=== PATIENT | female | born 1990 | race Hispanic/Latino ===

== ENCOUNTER → 2019-11-28 | Outpatient (REF) | payer OTHER ==
[~2019-11-28] MED LIST: AUGM875T28 PO; CIPR500T19; NEUR100C PO; TRAM50TA2
== END ==
LOC: M SFHCWAGY 14:01
PROVIDERS: ATTEND Nurse Practitioner Women's Health
DX: Z12.4 Encounter for screening for malignant neoplasm of cervix (principal)
CPT/HCPCS: G0101; G0123

== ENCOUNTER → 2019-12-24 | Outpatient (REF) | payer OTHER | LOC: M SFHCWAGY 17:21 | PROVIDERS: ATTEND Nurse Practitioner Women's Health | DX: R87.612 Low grade squamous intraepithelial lesion on cytologic smear of cervix (LGSIL) (principal) ==

== ENCOUNTER 2020-01-06 06:16 | Emergency (ER) | payer OTHER ==
[~2020-01-06] VITALS: Ht 162.6 cm; Wt 90.9 kg
[~2020-01-06 06:16] MED LIST changes: -AUGM875T28 PO; -NEUR100C PO
[2020-01-06] MEDS ORDERED: NEUR100C PO (06:25)
[2020-01-06] MEDS ORDERED: ACETAMINOPHEN 325 MG TAB As Ordered ONE (07:23)
[2020-01-06] MEDS ORDERED: ACETAMINOPHEN 325 MG TAB PO ONE (07:30)
--- NOTE | 2020-01-06 07:35 | REP ---
Clinical: Shortness of breath the . Comparison: None . Technique: PA and lateral. Findings: The mediastinum and cardiac silhouette are normal. The lung love are clear and without acute consolidation, effusion, or pneumothorax. The skeletal structures are intact and normal. Impression: 1. No acute cardiopulmonary process. Electronically Signed by Burton Giraldo MD 01/06/2020 07:27 A
[2020-01-06 07:47] LABS: BASO % 0.2 % (0.0-1.0); EOS # 0.2 10^3/uL (0.0-0.5); EOS % 1.3 % (0.0-3.0); HEMATOCRIT 35.6 % (36.0-47.0); HEMOGLOBIN 11.6 g/dl (12.0-15.5); LYMPH # 0.6 10^3/uL (1.5-5.0); LYMPH % 4.2 % (24.0-44.0); MEAN CORPUSCULAR HEMOGLOBIN 28.3 pg (27.0-33.0); MEAN CORPUSCULAR HGB CONC 32.6 g/dl (32.0-36.5); MEAN CORPUSCULAR VOLUME 86.8 fl (80.0-96.0); MONO # 0.7 10^3/uL (0.0-0.8); NEUTROPHILS # 12.6 10^3/uL (1.5-8.5); NEUTROPHILS % 88.8 % (36.0-66.0); PLATELET COUNT, AUTOMATED 215 10^3/uL (150-450); WHITE BLOOD COUNT 14.2 10^3/uL (4.0-10.0)
[2020-01-06 08:15] LABS: BLOOD UREA NITROGEN 6 MG/DL (7-18); CARBON DIOXIDE LEVEL 22 MEQ/L (21-32); CHLORIDE LEVEL 111 MEQ/L (98-107); CREATININE FOR GFR 0.82 MG/DL (0.55-1.30); GLOMERULAR FILTRATION RATE > 60.0 (>60); GLUCOSE, FASTING 105 MG/DL (70-100); POTASSIUM SERUM 3.2 MEQ/L (3.5-5.1); SODIUM LEVEL 142 MEQ/L (136-145)
[2020-01-06 08:22] LABS: CK-MB VALUE MASS < 1.0 NG/ML (<3.6); CPK CREATINE PHOSPHOKINASE 65 U/L (26-192); MB/CK RELATIVE INDEX 1.54 (< OR =4); TROPONIN I < 0.02 NG/ML (< 0.10)
[2020-01-06] MEDS ORDERED: ISOVUE-370 76% 100ML VIAL (Q9967) As Ordered ONE (09:42)
[2020-01-06] MEDS ORDERED: MORPHINE 2 MG/ML 1ML VIAL (J2270) IV ONE (10:00)
--- NOTE | 2020-01-06 10:35 | REP ---
Clinical: Acute chest pain with dyspnea and elevated D-dimer levels. Technique: Axial contrast enhanced images from the thoracic inlet to the upper abdomen using 100 ml Isovue 370 intravenous contrast material with coronal and sagittal re-formations. Findings: Satisfactory enhancement of the pulmonary vasculature is achieved and no filling defects are identified to suggest pulmonary embolus. Thoracic aorta is normal caliber without aneurysm or dissection. Heart and pericardium are normal. Lung love demonstrate very subtle scattered ground-glass opacities along with small focal primarily upper lobe alveolar infiltrates suggesting an early acute pneumonia. No effusion. No pneumothorax. Tracheobronchial tree is patent. Few mildly prominent reactive mediastinal and right hilar lymph nodes measure up to approximately 13 mm. Impression: No evidence for pulmonary embolus. Very subtle early acute pneumonia suspected and correlation is recommended. Electronically Signed by Burton Giraldo MD 01/06/2020 10:27 A
[2020-01-06] MEDS ORDERED: KETOROLAC 30 MG/ML VIAL (J1885) IV ONE (11:15)
[2020-01-06] MEDS ORDERED: AUGM875T28 PO (12:30)
[2020-01-06 12:55] VITALS: BP 105/67
--- NOTE | 2020-01-06 16:12 | ECGEPIP ---
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
== END 2020-01-06 12:58 | disposition home or self-care (01) ==
LOC: M ED 06:16
DX: J18.9 Pneumonia, unspecified organism (principal); Z20.828 Contact with and (suspected) exposure to other viral communicable diseases; R50.9 Fever, unspecified; R05 Cough; R06.00 Dyspnea, unspecified; Z87.891 Personal history of nicotine dependence
CPT/HCPCS: 71046; 71275; 80048; 82550; 82553; 83605; 84484; 85025; 85379; 87040; 87486; 87581; 87633; 87798; 87880; 93005; 96374; 96375; 99284; J1885; J2270; Q9967; U0002

== ENCOUNTER → 2020-10-31 | Outpatient (CLI) | payer OTHER ==
[~2020-10-31] MED LIST changes: +AUGM875T28 PO; +NEUR100C PO
[2020-10-31 17:01] LABS: ALBUMIN 4.5 GM/DL (3.2-5.2); ALT/SGPT 25 U/L (12-78); BILIRUBIN,TOTAL 0.3 MG/DL (0.2-1.0); BLOOD UREA NITROGEN 12 MG/DL (7-18); CALCIUM LEVEL 9.1 MG/DL (8.5-10.1); CARBON DIOXIDE LEVEL 25 MEQ/L (21-32); CHLORIDE LEVEL 107 MEQ/L (98-107); CHOLESTEROL LEVEL 160 MG/DL (<200); CHOLESTEROL RISK RATIO 3.076 (<5); CREATININE FOR GFR 0.86 MG/DL (0.55-1.30); FREE T4 1.03 NG/DL (0.76-1.46); GLOMERULAR FILTRATION RATE > 60.0 (>60); GLUCOSE, FASTING 90 MG/DL (70-100); HDL CHOLESTEROL 52 MG/DL (>40); LDL CHOLESTEROL 95 MG/DL (<100); NON-HDL-C 108 MG/DL; SODIUM LEVEL 141 MEQ/L (136-145); THYROID STIMULATING HORMONE 0.736 uIU/ML (0.358-3.740); TOTAL PROTEIN 7.5 GM/DL (6.4-8.2); TRIGLYCERIDES LEVEL 66 MG/DL (<150)
== END ==
LOC: M WUC 14:22
PROVIDERS: ATTEND Student in an Organized Health Care Education/Training Program
DX: J06.9 Acute upper respiratory infection, unspecified (principal); Z68.35 Body mass index [BMI] 35.0-35.9, adult
CPT/HCPCS: 36415; 80053; 80061; 83036; 84439; 84443; G0463

== ENCOUNTER → 2020-12-08 | Outpatient (REF) | payer OTHER | LOC: M SFHCLERA 15:46 | PROVIDERS: ATTEND Nurse Practitioner Family | DX: J06.9 Acute upper respiratory infection, unspecified (principal) ==

== ENCOUNTER → 2020-12-08 | Outpatient (CLI) | payer OTHER | LOC: M LABSMTC 14:07 | PROVIDERS: ATTEND Family Medicine | DX: Z11.52 Encounter for screening for COVID-19 (principal) | CPT/HCPCS: 87880; C9803; G0463; U0003 ==

== ENCOUNTER → 2020-12-31 | Outpatient (REF) | payer OTHER | LOC: M SFHCWAGY 13:17 | PROVIDERS: ATTEND Nurse Practitioner Women's Health | DX: Z12.4 Encounter for screening for malignant neoplasm of cervix (principal) ==

== ENCOUNTER → 2021-01-01 | Outpatient (CLI) | payer OTHER ==
--- NOTE | 2021-01-01 17:37 | REPVR ---
PROCEDURE INFORMATION: Exam: MR Lumbar Spine Without Contrast. Exam date and time: 01/01/2021 3:54 PM Age: 30 years old Clinical indication: Low back pain; Additional info: Lt low back pain TECHNIQUE: Imaging protocol: Multiplanar magnetic resonance images of the lumbar spine without contrast. COMPARISON: No relevant prior studies available. FINDINGS: Vertebrae: Anatomic alignment. No acute fracture seen. Spinal cord: The conus medullaris ends normally. The disc desiccation at L5-S1 with mild posterior disc height loss and slight endplate osteophytic ridging. Elsewhere, the intervertebral disc heights are preserved. L1-L2: Mild facet arthropathy. No stenoses. L2-L3: Mild facet arthropathy. No stenoses. L3-L4: Mild facet arthropathy. No stenoses. L4-L5: No significant disc disease. No significant spinal canal stenosis. No neural foraminal stenosis. L5-S1: Mild diffuse disc bulge. Approximate 2-3 mm right eccentric central disc protrusion with high-intensity zone approximates but does not definitively abut or displace the S1 nerve roots.. Facet arthropathy is mild. The central spinal canal and foramina remain patent. Soft tissues: Mild, nonspecific edema in the back subcutaneous fat, potentially dependent/positional. IMPRESSION: 1. Mild disc degeneration at L5-S1. 2. A subtle right eccentric central disc protrusion with high-intensity zone at L5-S1 approximates but does not definitively abut the S1 nerve roots. Electronically signed by: Marina Coleman On 01/01/2021 17:36:54 PM
== END ==
LOC: M PLARAD 13:22
PROVIDERS: ATTEND Student in an Organized Health Care Education/Training Program
DX: M51.27 Other intervertebral disc displacement, lumbosacral region (principal); M51.37 Other intervertebral disc degeneration, lumbosacral region

== ENCOUNTER → 2021-04-27 | Outpatient (REF) | payer OTHER | LOC: M SFHCLERA 11:58 | PROVIDERS: ATTEND Nurse Practitioner Family | DX: R19.7 Diarrhea, unspecified (principal) ==

== ENCOUNTER → 2021-04-28 | Outpatient (REF) | payer OTHER | LOC: M LAB REF 15:43 | PROVIDERS: ATTEND Nurse Practitioner Family | DX: R19.7 Diarrhea, unspecified (principal) ==

== ENCOUNTER → 2023-08-02 | Outpatient (REF) ==
[~2023-08-02] MED LIST changes: +BENA25CA4 PO; +BUPR300T92; +CETI-24; +CLON0.5T2; +GABA-282; +LATU80TA2; +ZOLP10TA2
== END ==
LOC: M PLAIMG 13:03
PROVIDERS: ATTEND Internal Medicine
DX: R52 Pain, unspecified (principal)

== ENCOUNTER → 2024-05-01 | Outpatient (CLI) | payer MEDICARE, OTHER ==
[~2024-05-01] MED LIST changes: +BUPR-597; -BUPR300T92
[2024-05-01 14:13] LABS: FREE T4 0.99 NG/DL (0.89-1.76)
[2024-05-01 14:14] LABS: THYROID STIMULATING HORMONE 0.458 uIU/ML (0.55-4.78)
[2024-05-01 14:15] LABS: PROLACTIN 6.23 NG/ML
== END ==
LOC: M PLALAB 12:27
PROVIDERS: ATTEND Obstetrics & Gynecology
DX: N92.1 Excessive and frequent menstruation with irregular cycle (principal); E07.9 Disorder of thyroid, unspecified